=== PATIENT | male | born 1995 | race Caucasian/White ===

== ENCOUNTER 2017-06-16 19:13 | Emergency (ER) | payer MEDICAID ==
[~2017-06-16] VITALS: Ht 180.3 cm; Wt 72.1 kg
[2017-06-16 19:33] VITALS: Ht 180.3 cm; Wt 72.1 kg
[2017-06-16 22:33] VITALS: BP 130/75
== END 2017-06-16 22:33 | disposition home or self-care (01) ==
LOC: ED 19:13
DX: S61.215A Laceration without foreign body of left ring finger without damage to nail, initial encounter (principal); W22.8XXA Striking against or struck by other objects, initial encounter; Y93.89 Activity, other specified; Y92.89 Other specified places as the place of occurrence of the external cause; Y99.8 Other external cause status
CPT/HCPCS: 90715; J2001

== ENCOUNTER 2018-08-05 13:55 | Emergency (ER) | payer MEDICAID ==
[~2018-08-05] VITALS: Ht 182.9 cm; Wt 79.4 kg
[2018-08-05 14:15] VITALS: BP 143/85; Ht 182.9 cm; Wt 79.4 kg
== END 2018-08-05 15:02 | disposition home or self-care (01) ==
LOC: ED 13:55
DX: S61.412D Laceration without foreign body of left hand, subsequent encounter (principal); X58.XXXD Exposure to other specified factors, subsequent encounter

== ENCOUNTER 2019-06-28 18:36 | Emergency (ER) | payer MEDICAID ==
[~2019-06-28] VITALS: Ht 180.3 cm; Wt 81.6 kg
[2019-06-28 18:57] VITALS: Ht 180.3 cm; Wt 81.6 kg
[2019-06-28 19:45] VITALS: BP 126/81
== END 2019-06-28 19:45 | disposition home or self-care (01) ==
LOC: ED 18:36
DX: S82.61XA Displaced fracture of lateral malleolus of right fibula, initial encounter for closed fracture (principal); X50.1XXA Overexertion from prolonged static or awkward postures, initial encounter; Y93.89 Activity, other specified; Y92.89 Other specified places as the place of occurrence of the external cause; Y99.8 Other external cause status
CPT/HCPCS: J1885